=== PATIENT | male | born 1985 | race Caucasian/White ===

== ENCOUNTER 2018-08-21 10:00 | Day surgery (SDC) | payer MEDICAID ==
[2018-08-21] MEDS ORDERED: Ketorolac 30 MG/ML SDV IVPUSH ONE (10:01)
[2018-08-21] MEDS ORDERED: Dexmedetomidine 200 MCG/2 ML SDV IV ONE (10:01)
[2018-08-21] MEDS ORDERED: Dexamethasone 4 MG/ML 5 ML MDV IVPUSH ONE (10:01)
[2018-08-21] MEDS ORDERED: Lactated Ringers 1,000 ML IV ONE (10:01)
[2018-08-21] MEDS ORDERED: Propofol 200 MG/20 ML SDV IV ONE (10:01)
[2018-08-21] MEDS ORDERED: Ondansetron 4 MG/2 ML SDV IVPUSH ONE (10:01)
[2018-08-21] MEDS ORDERED: Lidocaine 2% 100 MG/5 ML Syringe IVPUSH ONE (10:01)
[2018-08-21] MEDS ORDERED: Rocuronium 100 MG/10 ML MDV IV ONE (10:01)
[2018-08-21] MEDS ORDERED: Midazolam 1 MG/ML 2 ML SDV IV ONE (10:01)
[2018-08-21] MEDS ORDERED: Sugammadex Sodium 200 MG/2 ML VIAL IV ONE (10:01)
[2018-08-21] MEDS ORDERED: Citric Acid/Sodium Citrate Solution 30 ML Cup PO ONE (10:01)
[2018-08-21] MEDS ORDERED: Succinylcholine 200 MG/10 ML MDV IV ONE (10:01)
[2018-08-21] MEDS ORDERED: fentaNYL 100 MCG/2 ML SDV IV ONE (10:01)
[2018-08-21] MEDS: Lactated Ringers 1,000 ML IV SCH ×2 (10:52→16:52)
[2018-08-21] MEDS ORDERED: Piperacillin/Tazobactam 3.375 GM in Sodium Chloride 0.9% 50 ML IV ONE (12:00)
--- NOTE | 2018-08-21 13:36 | PCM.OPNOTE ---
- General Post-Op/Procedure Note Date of Surgery/Procedure: 08/21/18 Operative Procedure(s): Lap Appy Findings: Acute Appendicitis Pre Op Diagnosis: RLQ pain Post-Op Diagnosis: Same Anesthesia Technique: General ET Tube Primary Surgeon: David Vasquez Anesthesia Provider: Eleni Chase Pathology: Appendix EBL in mLs: 5 Complications: None Condition: Good
[2018-08-21] MEDS ORDERED: Morphine 2 MG/ML Syringe IVPUSH PRN (13:37)
[2018-08-21] MEDS ORDERED: Lactated Ringers 1,000 ML IV SCH (13:45)
[2018-08-21] MEDS: Acetaminophen/HYDROcodone 325-5 MG Tab PO PRN ×3 (15:13→23:50)
--- NOTE | 2018-08-21 20:56 | OR ---
DATE OF OPERATION: 08/21/2018 SURGEON: David Vasquez MD PREOPERATIVE DIAGNOSIS: Right lower quadrant abdominal pain. POSTOPERATIVE DIAGNOSIS: Acute appendicitis. PROCEDURE: Laparoscopic appendectomy. ANESTHESIA: General. DESCRIPTION OF PROCEDURE: The patient was brought to the operating room, where general endotracheal anesthesia was administered. The abdomen was prepped with ChloraPrep and draped sterilely. An infraumbilical incision was made and extended into the peritoneal cavity without difficulty. A Kishan cannula was introduced and pneumoperitoneum obtained. 5 mm ports were placed in the suprapubic position and penitentiary between the umbilicus and pubis. The patient was placed in Trendelenburg position and rotated to his left. There was some inflammatory fluid in the right lower quadrant that was suctioned. An acutely inflamed appendix was identified and grasped. A window was made in the mesoappendix at the base of the appendix and transected the appendix with an Endo GRACY 3.5 mm stapler. The mesoappendix was long and taken down with 3 applications of the Endo GRACY 2.5 mm stapler. The appendix was brought out through the umbilical port site. Right lower quadrant was irrigated and inspected, and all staple lines were hemostatic and intact. The ports were removed under direct vision and remained hemostatic. Umbilical fascia was closed with [id number] 0 Vicryl. The skin was closed with 4-0 Vicryl subcuticular sutures. Benzoin and Steri-Strips were placed and Band-Aids applied. The patient tolerated the procedure well. ESTIMATED BLOOD LOSS: 5 mL. He returned to postanesthesia in stable condition. /[id number] SALOMON/STEVE
[2018-08-22] MEDS: Lactated Ringers 1,000 ML IV SCH (01:02)
[2018-08-22] MEDS: Acetaminophen/HYDROcodone 325-5 MG Tab PO PRN ×2 (05:00→10:17)
--- NOTE | 2018-08-22 11:10 | PCM.SURGPN ---
- General Info Date of Service: 08/22/18 POD#: 1 Functional Status: Reports: Pain Controlled, Tolerating Diet, Ambulating, Urinating - Review of Systems General: Reports: No Symptoms - Patient Data Vitals - Most Recent: Last Vital Signs Temp 98.7 F 08/22/18 05:00 Pulse 67 08/21/18 15:15 Resp 18 08/22/18 05:00 BP 115/65 08/22/18 05:00 Pulse Ox 95 08/22/18 05:00 Weight - Most Recent: 132.903 kg I&O - Last 24 Hours: Intake & Output 08/21/18 08/22/18 08/22/18 22:59 06:59 14:59 Intake Total 835 982 Balance 835 982 Med Orders - Current: Current Medications Hydrocodone Bitart/Acetaminophen ([place] 325-5 Mg) 1 tab PO Q4H PRN PRN Reason: Pain (mild 1-3) Last Admin: 08/22/18 10:17 Dose: 1 tab Lactated Ringer's (Ringers, Lactated) 1,000 mls @ 125 mls/hr IV ASDIRECTED [facility] Last Admin: 08/22/18 01:02 Dose: 125 mls/hr Lactated Ringer's (Ringers, Lactated) 1,000 mls @ 125 mls/hr IV ASDIRECTED [facility] Morphine Sulfate (Morphine) 2 mg IVPUSH Q1H PRN PRN Reason: Pain (severe 7-10) Discontinued Medications Piperacillin Sod/Tazobactam (Sod 3.375 gm/ Sodium Chloride) 50 mls @ 100 mls/ hr IV ONETIME ONE Stop: 08/21/18 12:29 Last Admin: 08/21/18 11:26 Dose: 100 mls/hr - Exam Wound/Incisions: Healing Well GI/Abdominal Exam: Soft, Non-Tender - Problem List Review Problem List Initiated/Reviewed/Updated: Yes - My Orders Last 24 Hours: Active Orders 24 hr Category Date Time Status Patient Status [ADT] Routine ADT 08/21/18 10:30 Active Oxygen Therapy [RC] PRN Care 08/21/18 13:37 Active RT Incentive Spirometry [RC] Q2HWA Care 08/21/18 13:37 Active Ready for Discharge [RC] PER UNIT ROUTINE Care 08/22/18 11:09 Ordered Up ad Tiana [RC] ASDIRECTED Care 08/21/18 13:37 Active Vital Signs [RC] PER UNIT ROUTINE Care 08/21/18 13:37 Active Regular Diet [DIET] Diet 08/22/18 Breakfast Ordered Acetaminophen/HYDROcodone [[place] 325-5 MG] Med 08/21/18 13:37 Active 1 tab PO Q4H PRN Lactated Ringers [Ringers, Lactated] 1,000 ml Med 08/21/18 10:30 Active IV ASDIRECTED Lactated Ringers [Ringers, Lactated] 1,000 ml Med 08/21/18 13:45 Active IV ASDIRECTED Morphine Med 08/21/18 13:37 Active 2 mg IVPUSH Q1H PRN Peripheral IV Discontinue [OM.PC] Routine Oth 08/22/18 08:45 Ordered Peripheral IV Insertion Adult [OM.PC] Routine Oth 08/21/18 10:30 Ordered Sequential Compression Device [OM.PC] Routine Oth 08/21/18 10:30 Ordered Medication Orders Hydrocodone Bitart/Acetaminophen ([place] 325-5 Mg) 1 tab PO Q4H PRN PRN Reason: Pain (mild 1-3) Last Admin: 08/22/18 10:17 Dose: 1 tab Admin: 08/22/18 05:00 Dose: 1 tab Admin: 08/21/18 23:50 Dose: 1 tab Admin: 08/21/18 19:03 Dose: 1 tab Admin: 08/21/18 15:13 Dose: 1 tab Lactated Ringer's (Ringers, Lactated) 1,000 mls @ 125 mls/hr IV ASDIRECTED [facility] Last Admin: 08/22/18 01:02 Dose: 125 mls/hr Infusion: 08/22/18 00:52 Dose: 125 mls/hr Admin: 08/21/18 16:52 Dose: 125 mls/hr Infusion: 08/21/18 16:52 Dose: 125 mls/hr Admin: 08/21/18 10:52 Dose: 125 mls/hr Lactated Ringer's (Ringers, Lactated) 1,000 mls @ 125 mls/hr IV ASDIRECTED [facility] Morphine Sulfate (Morphine) 2 mg IVPUSH Q1H PRN PRN Reason: Pain (severe 7-10) - Assessment Assessment (Free Text/Narrative):: Doing well - Plan Plan (Free Text/Narrative):: Ready for discharge
[2018-08-22 12:14] VITALS: BP 115/73
== END 2018-08-22 11:20 | disposition home or self-care (01) ==
LOC: FB.SDS 10:00 → FB.MS 15:20 → FB.SDS 08-22 11:20
PROVIDERS: ATTEND Surgery
DX: K35.80 Unspecified acute appendicitis (principal); K21.9 Gastro-esophageal reflux disease without esophagitis; G47.30 Sleep apnea, unspecified; E78.5 Hyperlipidemia, unspecified; R26.2 Difficulty in walking, not elsewhere classified; F43.10 Post-traumatic stress disorder, unspecified; F90.9 Attention-deficit hyperactivity disorder, unspecified type; F31.9 Bipolar disorder, unspecified; F33.9 Major depressive disorder, recurrent, unspecified; F41.9 Anxiety disorder, unspecified; F17.210 Nicotine dependence, cigarettes, uncomplicated; E66.01 Morbid (severe) obesity due to excess calories; Z68.39 Body mass index [BMI] 39.0-39.9, adult; Z79.2 Long term (current) use of antibiotics; Z79.891 Long term (current) use of opiate analgesic; Z79.899 Other long term (current) drug therapy
CPT/HCPCS: 44970; 94150; A9270; C9399; J0330; J1100; J1885; J2001; J2250; J2405; J2543; J2704; J3010; J7050; J7120; 88304

== ENCOUNTER 2019-05-30 12:52 | Emergency (ER) | payer OTHER, MEDICAID ==
--- NOTE | 2019-05-30 13:16 | EDM.PDOC ---
ED HPI GENERAL MEDICAL PROBLEM - General Chief Complaint: ENT Problem Stated Complaint: MIGRAINE Time Seen by Provider: 05/30/19 13:14 Source of Information: Reports: Patient History Limitations: Reports: No Limitations - History of Present Illness INITIAL COMMENTS - FREE TEXT/NARRATIVE: 34-year-old male who reports onset of nasal congestion and sinus congestion with purulent nasal discharge approximately 2-1/2 weeks ago. He has been using [id number] medications without relief and beginning about 2 days ago he began to have pain in the orbital area and behind his left eye that was a pressure and throbbing type pain. He reports that the pain is an 8/10 has had some nausea associated with this but no vomiting. He has no neck stiffness. Had headaches like this before in the past and they have been associated with a sinus infection. He feels that he does have a sinus infection that is not responding to the standard therapies that he he has done at home. He has been eating and drinking normally. There have been low-grade fevers but no chills. There is some photophobia but no blurry vision. No arm or leg weakness. No ear pain. No trouble swallowing. There are no other associated signs or symptoms. There are no other modifying factors. 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 Pain Score (Numeric/FACES): 8 - Related Data Allergies Allergy/AdvReac Type Severity Reaction Status Date / Time No Known Allergies Allergy Verified 08/21/18 10:23 Home Meds: Home Meds Ibuprofen 1 tab PO TID 08/21/18 [History] Loratadine [Claritin] 1 tab PO DAILY 08/21/18 [History] Omeprazole 1 tab PO DAILY 08/21/18 [History] Zolpidem Tartrate [Ambien] 1 tab PO BEDTIME 08/21/18 [History] lamoTRIgine [Lamictal] 1 tab PO DAILY 08/21/18 [History] Amoxicillin/Clavulanate K [Augmentin 875-125 MG] 1 tab PO BID 10 Days #20 tablet 05/30/19 [Rx] Fluticasone Propionate [Flonase] 1 spray FRANKI BID #1 bottle 05/30/19 [Rx] Past Medical History Psychiatric History: Reports: Anxiety, Depression, PTSD - Past Surgical History GI Surgical History: Reports: Appendectomy, Cholecystectomy Male Surgical History: Reports: Vasectomy Musculoskeletal Surgical History: Reports: Arthroscopic Knee Social & Family History - Tobacco Use Smoking Status *Q: Current Every Day Smoker - Caffeine Use Caffeine Use: Reports: None - Alcohol Use Alcohol Use History: Yes Alcohol Use Frequency: Socially (Case only) - Living Situation & Occupation Occupation: Employed ED ROS GENERAL - Review of Systems Review Of Systems: See Below Constitutional: Reports: Fever (Low-grade) HEENT: Reports: Other (Sinus congestion and pressure with purulent nasal discharge) Respiratory: Reports: No Symptoms Cardiovascular: Reports: No Symptoms GI/Abdominal: Reports: Nausea (Mild, OFF AND ON) : Reports: No Symptoms Musculoskeletal: Reports: No Symptoms Skin: Reports: No Symptoms Neurological: Reports: Headache Hematologic/Lymphatic: Reports: No Symptoms Immunologic: Reports: No Symptoms - Physical Exam Exam: See Below Exam Limited By: No Limitations General Appearance: Alert, WD/WN, Moderate Distress (Appears in some discomfort. ), Other (He is awake, alert and appropriate. He appears nontoxic) Eye Exam: Bilateral Eye: EOMI, Normal Inspection, PERRL Ears: Normal External Exam, Hearing Grossly Normal Nose: Normal Inspection, Normal Mucosa, No Blood Throat/Mouth: Normal Inspection, Normal Oropharynx, Normal Voice, No Airway Compromise Head Exam: Atraumatic, Normocephalic, Sinus Tenderness (Over the left maxillary sinus area.) Neck: Normal Inspection, Supple, Non-Tender, Full Range of Motion Respiratory/Chest: No Respiratory Distress, Lungs Clear, Normal Breath Sounds, No Accessory Muscle Use, Chest Non-Tender Cardiovascular: Normal Peripheral Pulses, Regular Rate, Rhythm, No JVD, No Murmur GI/Abdominal: Normal Bowel Sounds, Soft, Non-Tender, No Mass Neuro Exam (Abbreviated): Alert, Oriented, CN II-XII Intact, Normal Cognition, No Motor/Sensory Deficits Back Exam: Normal Inspection Extremities: Normal Inspection, Normal Range of Motion, Normal Capillary Refill Skin Exam: Warm, Dry, Intact, Normal Color, No Rash Course - Vital Signs Last Recorded V/S: Last Vital Signs Temp 35.9 C 05/30/19 13:00 Pulse 72 05/30/19 13:00 Resp 17 05/30/19 13:00 BP 157/91 H 05/30/19 13:00 Pulse Ox 99 05/30/19 13:00 - Re-Assessments/Exams Free Text/Narrative Re-Assessment/Exam: 05/30/19 13:25: Patient with what appears to be a left maxillary sinusitis and a headache associated with this. He does not have any turning signs or symptoms that would warrant further evaluation at this time. I will treat the patient with Augmentin and Flonase and he can continue to use a Profen and Tylenol for pain. Precautions and reasons for return to the emergency department were discussed with the patient prior to his discharge. Departure - Departure Time of Disposition: 13:35 Disposition: Home, Self-Care 01 Condition: Good Clinical Impression: Sinusitis, acute Qualifiers: Sinusitis location: unspecified location Recurrence: non-recurrent Qualified Code(s): J01.90 - Acute sinusitis, unspecified Headache Qualifiers: Headache type: unspecified Headache chronicity pattern: acute headache Intractability: not intractable Qualified Code(s): R51 - Headache - Discharge Information Prescriptions: Amoxicillin/Clavulanate K [Augmentin 875-125 MG] 1 tab PO BID 10 Days #20 tablet Fluticasone Propionate [Flonase] 1 spray FRANKI BID #1 bottle Instructions: Sinusitis, Adult, [id number], Sinus Headache, [id number] Referrals: PCP,None [Primary Care Provider] - Forms: ED Department Discharge Additional Instructions: You appear to have a sinus infection and I think that your headache is related to this sinus infection. As we discussed, there can be many other reasons for headaches. He did not appear to have any concerning or dangerous signs or symptoms associated with your headache at this time. I am, therefore, treating him for a sinus infection with an antibiotic (Augmentin 875 mg) and a steroid nasal spray (Flonase nasal spray). It would help if he would be able to do Netti pot rinses of your was/sinuses each time before you use the Flonase nasal spray. Drink plenty of fluids. You should also take Claritin or Zyrtec (over-the -counter) daily. Follow-up with your primary doctor as needed. Back to the emergency department for worsening headache, unrelenting vomiting, localized area of weakness or numbness or any other concerning sign or symptom. Certainly if your headache is persisting the treatment, you need to have reevaluation. Sepsis Event Note - Focused Exam Vital Signs: Vital Signs Temp Pulse Resp BP Pulse Ox 05/30/19 13:00 35.9 C 72 17 157/91 H 99 Date Exam was Performed: 05/30/19 Time Exam was Performed: 16:27
== END 2019-05-30 13:51 | disposition home or self-care (01) ==
LOC: FB.ED 12:52
CPT/HCPCS: 99283

== ENCOUNTER 2021-03-23 20:28 | Emergency (ER) | payer OTHER, MEDICAID ==
[2021-03-23 21:23] LABS: STREP A BY PCR NOT DETECTED (NOT DETECT)
[2021-03-23 21:45] LABS: CORONAVIRUS COVID-19 NAA NEGATIVE (NEGATIVE)
--- NOTE | 2021-03-23 21:55 | EDM.PDOC ---
ED HPI GENERAL MEDICAL PROBLEM - General Stated Complaint: FEVER,SORE THROAT,COUGH ETC Time Seen by Provider: 03/23/21 20:40 Source of Information: Reports: Patient History Limitations: Reports: No Limitations - History of Present Illness INITIAL COMMENTS - FREE TEXT/NARRATIVE: Patient presented to the ED because of cough/cold sore throat for 3 days with associated low grade fever and chills. Sore throat Pain Score (Numeric/FACES): 6 - Related Data Allergies Allergy/AdvReac Type Severity Reaction Status Date / Time No Known Allergies Allergy Verified 08/21/18 10:23 Home Meds: Home Meds Loratadine [Claritin] 1 tab PO DAILY 08/21/18 [History] Past Medical History Respiratory History: Reports: Other (See Below) Other Respiratory History: chronic smoker. Psychiatric History: Reports: Anxiety, Depression, PTSD Other Psychiatric History: on Klonopin. - Past Surgical History GI Surgical History: Reports: Appendectomy, Cholecystectomy Male Surgical History: Reports: Vasectomy Musculoskeletal Surgical History: Reports: Arthroscopic Knee Social & Family History - Family History Family Medical History: No Pertinent Family History - Caffeine Use Caffeine Use: Reports: None - Living Situation & Occupation Occupation: Employed ED ROS GENERAL - Review of Systems Review Of Systems: See Below Constitutional: Reports: Fever, Chills HEENT: Reports: Rhinitis, Throat Pain Respiratory: Reports: Cough Cardiovascular: Reports: No Symptoms Endocrine: Reports: No Symptoms GI/Abdominal: Reports: No Symptoms : Reports: No Symptoms Musculoskeletal: Reports: No Symptoms Skin: Reports: No Symptoms Neurological: Reports: No Symptoms ED EXAM, GENERAL - Physical Exam Exam: See Below Exam Limited By: No Limitations General Appearance: Alert, No Apparent Distress Eye Exam: Bilateral Eye: PERRL Ears: Normal External Exam, Normal Canal, Hearing Grossly Normal, Normal TMs Nose: Normal Inspection, Normal Mucosa, No Blood Throat/Mouth: Normal Inspection, Normal Lips, Normal Teeth, Normal Gums, Normal Oropharynx, Normal Voice Head: Atraumatic, Normocephalic Neck: Normal Inspection, Supple, Non-Tender, Full Range of Motion Respiratory/Chest: No Respiratory Distress, Lungs Clear, Normal Breath Sounds, No Accessory Muscle Use, Chest Non-Tender Cardiovascular: Normal Peripheral Pulses, Regular Rate, Rhythm, No Edema, No Gallop, No JVD, No Murmur, No Rub GI/Abdominal: Normal Bowel Sounds, Soft, Non-Tender, No Organomegaly, No Distention, No Abnormal Bruit, No Mass Back Exam: Normal Inspection, Full Range of Motion Extremities: Normal Inspection, Normal Range of Motion, Non-Tender, No Pedal Edema, Normal Capillary Refill Neurological: Alert, Oriented, CN II-XII Intact, Normal Cognition, Normal Gait, Normal Reflexes, No Motor/Sensory Deficits Psychiatric: Normal Affect Skin Exam: Warm Course - Vital Signs Text/Narrative:: Influenza A/B-negative Covid-negative Strep-negative Last Recorded V/S: Last Vital Signs Temp 36.4 C 03/23/21 22:10 Pulse 74 03/23/21 22:10 Resp 20 03/23/21 22:10 BP 148/86 H 03/23/21 22:10 Pulse Ox 95 03/23/21 22:10 - Orders/Labs/Meds Orders: Active Orders 24 hr Category Date Time Status Isolation [COMM] Routine Oth 03/23/21 20:47 Ordered Labs: Laboratory Tests 03/23/21 Range/Units 20:50 SARS-CoV-2 RNA (CHRIS) Negative (NEGATIVE) Group A Strep (PCR) Not detected (NOT DETECT) Departure - Departure Time of Disposition: 22:00 Disposition: Home, Self-Care 01 Condition: Good Clinical Impression: URI (upper respiratory infection), Pharyngitis - Discharge Information Instructions: Viral Respiratory Infection, [id number]-[id number], Pharyngitis, [id number] Referrals: PCP,None [Primary Care Provider] - Forms: ED Department Discharge Additional Instructions: Please read discharge instructions on URI-viral and sore throat Drink at least 2 liters of water daily Take [id number] mg with tylenol 1000 mg every 8 hours as needed for pain/fever Follow up as needed - My Orders Last 24 Hours: My Active Orders 03/23/21 20:47 Isolation [COMM] Routine - Assessment/Plan Last 24 Hours: My Active Orders 03/23/21 20:47 Isolation [COMM] Routine
[2021-03-24 02:20] VITALS: PULSE 74
[2021-03-24 02:30] VITALS: BP 148/86
== END 2021-03-23 22:10 | disposition home or self-care (01) ==
LOC: FB.ED 20:28
DX: J02.9 Acute pharyngitis, unspecified (principal); Z87.891 Personal history of nicotine dependence; Z20.822 Contact with and (suspected) exposure to COVID-19
CPT/HCPCS: 87651-QW; 87804; 87804-59; 99283; U0002